=== PATIENT | female | born 1950 | race Caucasian/White ===

== ENCOUNTER → 2023-10-13 13:07 | Outpatient (REF) | payer OTHER, SELFPAY | LOC: HWRAD 13:07 | PROVIDERS: ATTENDING PHYSICIAN Family Medicine | DX: Z12.31 Encounter for screening mammogram for malignant neoplasm of breast (principal); M81.0 Age-related osteoporosis without current pathological fracture | CPT/HCPCS: 77063; 77067; 77080 ==

== ENCOUNTER → 2023-10-22 09:40 | Outpatient (REF) | payer OTHER, SELFPAY | LOC: WDC 09:40 | PROVIDERS: ATTENDING PHYSICIAN Family Medicine | DX: R92.8 Other abnormal and inconclusive findings on diagnostic imaging of breast (principal) | CPT/HCPCS: 76642 ==

== ENCOUNTER → 2023-10-28 10:04 | Outpatient (REF) | payer OTHER, SELFPAY ==
--- NOTE | 2023-10-28 13:38 | OID.BR.INTR ---
[facility]ELAN[facility] Breast Navigator - Initial
- -
Date of Contact: 10/28/23
Met with patient. Patient given written information on navigator services available at [facility]. Will follow up as needed per protocol.
== END ==
LOC: WDC 10:04
PROVIDERS: ATTENDING PHYSICIAN Family Medicine
DX: N63.24 Unspecified lump in the left breast, lower inner quadrant (principal)
CPT/HCPCS: 88305; 19083; 77065; 88341; 88342; 88360; A4648

== ENCOUNTER → 2023-11-16 11:20 | Outpatient (REF) | payer BC, OTHER, SELFPAY | LOC: WDC 11:20 | PROVIDERS: ATTENDING PHYSICIAN Surgery | DX: C50.412 Malignant neoplasm of upper-outer quadrant of left female breast (principal) | CPT/HCPCS: 19285; 38792; 76942; 77065; A4648; A9541 ==

== ENCOUNTER 2023-11-17 06:06 | Day surgery (SDC) | payer BC, OTHER, SELFPAY ==
[2023-11-05 08:07] VITALS: BMI 41.6
[2023-11-05 08:57] LABS: Hematocrit 41.4 % (37.0-47.0); Mean Corp Hgb Conc. 33.8 g/dL (33.0-37.0); Mean Corpuscular Hgb 29.9 pg (27.0-31.0); Mean Corpuscular Volume 88.5 fL (81.0-99.0); Mean Platelet Volume 10.8 fL (7.4-10.4); Platelet Count 219 10^3/uL (130-400); Red Blood Cell Count 4.68 10^6/uL (4.20-5.40); Red Cell Dist. Width 13.8 % (11.5-14.5); White Blood Cell Count 9.5 10^3/uL (4.8-10.8)
[2023-11-05 10:44] LABS: ALT (SGPT) 47 U/L (0-35); AST (SGOT) 45 U/L (14-36); Albumin 4.7 g/dl (3.5-5.0); Alkaline Phosphatase 87 U/L (38-126); Blood Urea Nitrogen 19 mg/dl (7-17); Calcium 9.5 mg/dl (8.4-10.2); Carbon Dioxide 19 mmol/L (22-30); Chloride 109 mmol/L (98-107); Estimated Creatinine Clearance 82 ml/min; Glucose 135 mg/dl (70-99); Potassium 4.2 mmol/L (3.5-5.1); Sodium 140 mmol/L (135-145); Total Bilirubin 0.5 mg/dl (0.2-1.3); Total Protein 7.8 g/dl (6.3-8.2); eGFR > 60.00
[2023-11-05 10:55] LABS: Prealbumin (Transthyretin) 25.8 mg/dl (17.6-36.0)
[2023-11-05 11:02] LABS: Vitamin D, 25-OH*** 41.9 ng/mL (30-80)
[2023-11-17] VITALS (11 sets, daily range): BP systolic 115–149; BP diastolic 53–100; BMI 40.0
[2023-11-17] MEDS: TYLENOL 1000 MG PO (06:24)
[2023-11-17] MEDS: LOVENOX 40 MG SC (06:25)
[2023-11-17] MEDS: NORMOSOL-R 1000 IV (06:27)
[2023-11-17 06:28] LABS: Glucose - Point of Care 144 mg/dl (70-99)
[2023-11-17] MEDS: VANCOCIN 200 IV (06:28)
--- NOTE | 2023-11-17 09:07 | W.IMMPOSTOP ---
Surgical Immed Post Op Note
-
Primary Surgeon: Meir
Assisting Surgeon: None
Pre-op Diagnosis: Left breast ca
Post-op Diagnosis: Same
Procedure Performed: Left localized lumpectomy, sentinel lymph node mapping and biopsy
Anesthesia Type: General LMA
Specimen / Cultures: Left sentinel node, lumpectomy, margins
Estimated Blood Loss: 6cc
Complications: None
Operative Findings: Neg node, mass, clip and reflector in specimen
[place] Node Bx Breast Cancer
[place] Node Bx Breast Cancer
Tracer(s) to ID [place] Nodes in Non-Neoadjuvant setting: Radioactive Tracer
Tracer(s) to ID [place] Nodes in the Neoadjuvant Setting: N/A
All nodes at end of dye-filled Lymphatic Channel removed: N/A
All Significantly Radioactive Nodes were removed: Yes
All Palpably Suspicious Nodes were Removed: Yes
Bx Proven Pos Nodes Marked Prior to Chemo ID'd & Removed: N/A
[2023-11-17 09:17] LABS: Glucose - Point of Care 154 mg/dl (70-99)
--- NOTE | 2023-11-17 11:13 | PTCARENOTE ---
Dr. Worley saw patient at the bedside. Patient complaining of 'sticking pain' under the armpit. Dr. Worley assessed patient. Will monitor patient.
== END 2023-11-17 11:22 | disposition home or self-care (01) ==
LOC: SDS 06:06
PROVIDERS: ATTENDING PHYSICIAN Surgery; FAMILY PHYSICIAN Family Medicine
DX: C50.412 Malignant neoplasm of upper-outer quadrant of left female breast (principal); Z17.0 Estrogen receptor positive status [ER+]
CPT/HCPCS: 19301; 38525; 88305; 88307; 88332; 36415; 76098; 80053; 82306; 82962; 84134; 85027; 88331; 88342; 93005; A4648; L8000

== ENCOUNTER → 2024-10-18 14:35 | Outpatient (REF) | payer OTHER, SELFPAY | LOC: WDC 14:35 | PROVIDERS: ATTENDING PHYSICIAN Internal Medicine Hematology & Oncology; FAMILY PHYSICIAN Family Medicine | DX: Z12.31 Encounter for screening mammogram for malignant neoplasm of breast (principal) | CPT/HCPCS: 77063; 77067 ==